=== PATIENT | female | born 1965 | race Caucasian/White ===

== ENCOUNTER 2021-09-25 11:19 | Inpatient (IN) | payer BC, SELFPAY ==
[~2021-09-25] VITALS: Ht 165.1 cm; Wt 81.6 kg
[2021-09-25 11:28] VITALS: BP 133/76
[2021-09-25 11:46] LABS: HEMOGLOBIN 15.2 g/dL (12.0-16.0); MONOCYTES # (AUTO) 0.3 K/uL (0.8-1.0); WHITE BLOOD COUNT (AUTO) 5.6 K/uL (4.8-10.8)
[2021-09-25] MEDS ORDERED: CLOPIDOGREL 75 MG TAB PO ONE (12:15)
[2021-09-25] MEDS ORDERED: ASPIRIN 325 MG TAB PO ONE (12:15)
[2021-09-25 12:33] LABS: ANION GAP 13.2 (8-16); CARBON DIOXIDE 25.7 mmol/L (21-32); CREATININE 0.7 mg/dL (0.6-1.3); POTASSIUM 3.9 mmol/L (3.5-5.1); TOTAL BILIRUBIN 0.6 mg/dL (0.0-1.0)
[2021-09-25] MEDS ORDERED: ONDANSETRON 4 MG/2 ML VIAL IVP PRN (13:05)
[2021-09-25] MEDS ORDERED: METF-350 PO (13:21)
[2021-09-25] MEDS ORDERED: LISINOPRIL (13:21)
[2021-09-25 14:06] LABS: APPEARANCE,URINE CLEAR (CLEAR); BILIRUBIN,URINE NEGATIVE (NEGATIVE); BLOOD, URINE 1+ (NEGATIVE); COLOR,URINE YELLOW (YELLOW); LEUKOCYTE ESTERASE ,URINE NEGATIVE (NEGATIVE); NITRITE, URINE NEGATIVE (NEGATIVE); PH,URINE 7.5 (5.0-9.0); UGLUCOSE NEGATIVE (NEGATIVE)
[2021-09-25 14:20] LABS: BASOPHILS # (AUTO) 0.1 K/uL (0.00-0.22); BASOPHILS % (AUTO) 2.5 % (0.0-2.0); EOSINOPHILS # (AUTO) 0.2 K/uL (0-0.4); EOSINOPHILS % (AUTO) 3.6 % (0.0-4.0); HEMATOCRIT 44.9 % (36-48); LYMPHOCYTES # (AUTO) 1.6 K/uL (2.5-16.5); LYMPHOCYTES % (AUTO) 28.5 % (20.5-51.1); MEAN CORPUSCULAR HEMOGLOBIN 31 pg (27-31); MEAN CORPUSCULAR HGB CONC 34 g/dL (33-37); MEAN CORPUSCULAR VOLUME 91.9 fL (80-94); MONOCYTES % (AUTO) 5.4 % (1.7-9.3); NEUTROPHILS # (AUTO) 3.3 K/uL (1.8-7.7); PLATELET COUNT (AUTO) 258 K/uL (140-450); RED BLOOD CELL COUNT(AUTO) 4.88 MIL/uL (4.20-5.40)
[2021-09-25 15:00] VITALS: BP 125/58
[2021-09-25 15:55] LABS: WBC,URINE 0-5 /HPF (0-5)
[2021-09-25 15:58] LABS: PROTHROMBIN TIME 10.4 secs (10.8-13.4)
[2021-09-25 16:00] LABS: CHOL/HDL RATIO 4.6 (1-4.5)
[2021-09-25 20:00] VITALS: BP 111/57
[2021-09-26] VITALS: BP 110/46
[2021-09-26 04:00] VITALS: BP 115/52
[2021-09-26] MEDS ORDERED: ATOR20TA40 PO (07:29)
[2021-09-26] MEDS ORDERED: ASPI81CT95 PO (07:29)
[2021-09-26] MEDS ORDERED: CLOP75TA55 PO (07:29)
[2021-09-26 07:31] LABS: BASOPHILS % (AUTO) 0.5 % (0.0-2.0); EOSINOPHILS # (AUTO) 0.1 K/uL (0-0.4); EOSINOPHILS % (AUTO) 2.2 % (0.0-4.0); LYMPHOCYTES # (AUTO) 1.8 K/uL (2.5-16.5); MEAN CORPUSCULAR HEMOGLOBIN 31 pg (27-31); MEAN CORPUSCULAR HGB CONC 34 g/dL (33-37); MEAN CORPUSCULAR VOLUME 91.8 fL (80-94); MONOCYTES # (AUTO) 0.5 K/uL (0.8-1.0); MONOCYTES % (AUTO) 7.5 % (1.7-9.3); NEUTROPHILS # (AUTO) 3.6 K/uL (1.8-7.7); NEUTROPHILS % (AUTO) 59.8 % (42.2-75.2); PLATELET COUNT (AUTO) 228 K/uL (140-450); RED BLOOD CELL COUNT(AUTO) 4.47 MIL/uL (4.20-5.40); RED CELL DISTRIBUTION WIDTH 12.9 % (11.6-13.7); WHITE BLOOD COUNT (AUTO) 6.1 K/uL (4.8-10.8)
[2021-09-26 07:41] LABS: ANION GAP 11.8 (8-16); CARBON DIOXIDE 28.7 mmol/L (21-32); CREATININE 0.7 mg/dL (0.6-1.3); POTASSIUM 3.5 mmol/L (3.5-5.1)
[2021-09-26 07:49] LABS: PHOSPHORUS 4.2 mg/dL (2.5-4.9)
[2021-09-26 08:00] VITALS: BP 120/59
[2021-09-26] MEDS: CLOPIDOGREL 75 MG TAB PO SCH (08:19)
[2021-09-26] MEDS: ASPIRIN 81 MG TAB.CHEW PO SCH (08:20)
[2021-09-26] MEDS: ATORVASTATIN 20 MG TAB PO SCH (08:20)
[2021-09-26 12:00] VITALS: BP 123/60
[2021-09-26 16:00] VITALS: BP 117/54
[2021-09-26 20:00] VITALS: BP 116/56
[2021-09-26] MEDS ORDERED: ACETAMINOPHEN 325 MG TAB PO PRN (21:25)
[2021-09-27] VITALS: BP 107/53
[2021-09-27 04:00] VITALS: BP 112/50
[2021-09-27 06:27] LABS: BASOPHILS % (AUTO) 0.5 % (0.0-2.0); EOSINOPHILS # (AUTO) 0.1 K/uL (0-0.4); EOSINOPHILS % (AUTO) 2.3 % (0.0-4.0); HEMATOCRIT 39.7 % (36-48); HEMOGLOBIN 13.5 g/dL (12.0-16.0); LYMPHOCYTES # (AUTO) 2.1 K/uL (2.5-16.5); LYMPHOCYTES % (AUTO) 39.6 % (20.5-51.1); MEAN CORPUSCULAR HEMOGLOBIN 31 pg (27-31); MEAN CORPUSCULAR HGB CONC 34 g/dL (33-37); MEAN CORPUSCULAR VOLUME 91.1 fL (80-94); MONOCYTES # (AUTO) 0.4 K/uL (0.8-1.0); MONOCYTES % (AUTO) 7.4 % (1.7-9.3); NEUTROPHILS # (AUTO) 2.7 K/uL (1.8-7.7); NEUTROPHILS % (AUTO) 50.2 % (42.2-75.2); PLATELET COUNT (AUTO) 210 K/uL (140-450); RED BLOOD CELL COUNT(AUTO) 4.36 MIL/uL (4.20-5.40); RED CELL DISTRIBUTION WIDTH 12.6 % (11.6-13.7); WHITE BLOOD COUNT (AUTO) 5.4 K/uL (4.8-10.8)
[2021-09-27 06:30] LABS: ANION GAP 11.3 (8-16); CARBON DIOXIDE 29.5 mmol/L (21-32); CREATININE 0.8 mg/dL (0.6-1.3); POTASSIUM 3.8 mmol/L (3.5-5.1)
[2021-09-27 06:31] LABS: PHOSPHORUS 4.1 mg/dL (2.5-4.9)
[2021-09-27 07:38] VITALS: BP 112/50
[2021-09-27 08:23] VITALS: BP 118/60
[2021-09-27] MEDS: ATORVASTATIN 20 MG TAB PO SCH (08:25)
[2021-09-27] MEDS: CLOPIDOGREL 75 MG TAB PO SCH (08:25)
[2021-09-27] MEDS: ASPIRIN 81 MG TAB.CHEW PO SCH (08:25)
[2021-09-27] MEDS ORDERED: LORazepam 2 MG/ML VIAL IM/IVP PRN (11:40)
[2021-09-27] MEDS ORDERED: INSULIN LISPRO SLIDING SCALE 100 UNITS/ML VIAL SUBQ PRN (11:40)
[2021-09-27] MEDS ORDERED: HYDROcodone/APAP 5/325 MG 1 TAB TAB PO PRN (11:40)
[2021-09-27] MEDS ORDERED: DOCUSATE SODIUM 100 MG GELCAP PO PRN (11:40)
[2021-09-27] MEDS ORDERED: ACETAMINOPHEN 325 MG TAB PO PRN (11:40)
[2021-09-27] MEDS ORDERED: DEXTROSE 50% 50 ML SYR IVP PRN (11:40)
[2021-09-27] MEDS ORDERED: ONDANSETRON 4 MG/2 ML VIAL IM/IVP PRN (11:40)
[2021-09-27] MEDS ORDERED: ZOLPIDEM 5 MG TAB PO PRN (11:40)
[2021-09-27] MEDS ORDERED: metFORMIN 850 MG TAB PO SCH ×2 (11:56→17:00)
[2021-09-27] MEDS ORDERED: CRUSHER, PILL MC ONE (12:08)
[2021-09-27 12:15] VITALS: BP 104/67
[2021-09-27 12:23] LABS: THYROID STIMULATING HORMONE 1.69 uIU/mL (0.34-3.74)
[2021-09-27 14:11] LABS: BARBITURATE, URINE NEGATIVE ng/ml (NEG <=200); BENZODIAZEPINE, URINE NEGATIVE ng/mL (NEG <=200); CANNABINOID, URINE NEGATIVE ng/mL (NEG <=50); COCAINE, URINE NEGATIVE ng/mL (NEG <=300); OPIATE, URINE NEGATIVE ng/mL (NEG <=2000); PHENCYCLIDINE SCREEN,URINE NEGATIVE ng/mL (NEG <=25)
[2021-09-27] MEDS ORDERED: BLOOD GLUCOSE MONITORING 1 DEV DEV FS SCH (16:30)
[2021-09-28 07:09] LABS: T4 (THYROXINE) 7.1 ug/dL (4.5-12.0)
[2021-09-28] MEDS ORDERED: CLOPIDOGREL 75 MG TAB PO SCH (09:00)
[2021-09-28] MEDS ORDERED: ASPIRIN 81 MG TAB.CHEW PO SCH (09:00)
[2021-09-28] MEDS ORDERED: ATORVASTATIN 20 MG TAB PO SCH (09:00)
== END 2021-09-27 15:30 | disposition home or self-care (01) | DRG 69 ==
LOC: MED 11:19 → MTU 13:08
PROVIDERS: ADMIT Student in an Organized Health Care Education/Training Program; ATTEND Student in an Organized Health Care Education/Training Program
DX: G45.9 Transient cerebral ischemic attack, unspecified (principal); I10 Essential (primary) hypertension; R73.03 Prediabetes; R29.810 Facial weakness; Z20.822 Contact with and (suspected) exposure to COVID-19; E78.5 Hyperlipidemia, unspecified; Z86.73 Personal history of transient ischemic attack (TIA), and cerebral infarction without residual deficits; Z83.3 Family history of diabetes mellitus; Z82.49 Family history of ischemic heart disease and other diseases of the circulatory system; Z80.8 Family history of malignant neoplasm of other organs or systems
CPT/HCPCS: 36415; 70450; 71045; 80048; 80053; 80305; 81001; 83036; 83690; 83735; 83880; 84100; 84134; 84436; 84443; 84484; 85025; 85610; 85730; 86886; 86900; 86901; 87081; 93005; 93880; 99291; Q0092; Q9967